=== PATIENT | male | born 1970 | race African-American/Black ===

== ENCOUNTER 2024-01-27 09:32 | Emergency (ER) | payer OTHER ==
--- NOTE | 2024-01-27 09:51 | ED ---
General Adult HPI - General Stated complaint: med refill Time Seen by Provider: 01/27/24 09:46 Source: patient, RN notes reviewed Mode of arrival: ambulatory Limitations: no limitations - History of Present Illness Initial comments: 54-year-old male presents emergency department with chief complaint of needing medication refill. Patient states he takes Prozac 30 mg daily. Patient states that he takes a 10 mg at 20 mg tablet he states he needs a new PCP and is out of his medication. He offers no other complaints. - Related Data Previous Rx's Medication Instructions Recorded DULoxetine HCL [Cymbalta] 60 mg PO DAILY #30 capsule. 05/27/16 QUEtiapine [SEROquel] 300 mg PO HS #90 tab 05/27/16 FLUoxetine HCL [PROzac] 10 mg PO DAILY #30 capsule 01/27/24 FLUoxetine HCL [PROzac] 20 mg PO DAILY #30 cap 01/27/24 Allergies Allergy/AdvReac Type Severity Reaction Status Date / Time aspirin Allergy Unknown Verified 01/27/24 09:57 Review of Systems ROS Statement: Those systems with pertinent positive or pertinent negative responses have been documented in the HPI. ROS Other: All systems not noted in ROS Statement are negative. Past Medical History Past Medical History: GERD/Reflux, Osteoarthritis (OA) Additional Past Medical History / Comment(s): 04-20-[address] [facility] overdose/suicidal- unable to obtain info from pt- called pt's mom.unable to o btain risk screen info (depression screen at time of this admit) arthritis both knees History of Any Multi-Drug Resistant Organisms: None Reported Past Surgical History: Appendectomy Past Anesthesia/Blood Transfusion Reactions: No Reported Reaction Past Psychological History: Bipolar, Depression Additional Psychological History / Comment(s): adhd Past Alcohol Use History: Rare Additional Past Alcohol Use History / Comment(s): Patient reports he has a rare to occasional beer, no history of alcoholism. Past Drug Use History: Cocaine Additional Drug Use History / Comment(s): Admits to cocaine use 2 days ago Delfin states he "smoked cocaine".. Denies IV drug abuse. admits to occassional use of cocaine smoked it - Past Family History Mother Family Medical History: COPD, Hypertension Additional Family Medical History / Comment(s): enlarged heart Father Family Medical History: Hypertension General Exam Limitations: no limitations General appearance: alert, in no apparent distress Head exam: Present: atraumatic, normocephalic, normal inspection Eye exam: Present: normal appearance, PERRL, EOMI. Absent: scleral icterus, conjunctival injection, periorbital swelling ENT exam: Present: normal exam, normal oropharynx, mucous membranes moist Neck exam: Present: normal inspection, full ROM. Absent: tenderness, meningismus, lymphadenopathy Respiratory exam: Present: normal lung sounds bilaterally. Absent: respiratory distress, wheezes, rales, rhonchi, stridor Cardiovascular Exam: Present: regular rate, normal rhythm, normal heart sounds. Absent: systolic murmur, diastolic murmur, rubs, gallop, clicks Course Vital Signs 01/27/24 09:55 Temperature 98 F Pulse Rate 64 Respiratory 18 Rate Blood Pressure 125/77 O2 Sat by Pulse 98 Oximetry Medical Decision Making - Medical Decision Making Was pt. sent in by a medical professional or institution (, PA, BUTTON CUTTER, urgent care, hospital, or prison...) When possible be specific @ -No Did you speak to anyone other than the patient for history (EMS, parent, family, police, friend...)? What history was obtained from this source @ -No Did you review nursing and triage notes (agree or disagree)? Why? @ -I reviewed and agree with nursing and triage notes Were old charts reviewed (outside hosp., previous admission, EMS record, old EKG, old radiological studies, urgent care reports/EKG's, prison records)? Report findings @ -No old charts were reviewed Differential Diagnosis (chest pain, altered mental status, abdominal pain women, abdominal pain men, vaginal bleeding, weakness, fever, dyspnea, syncope, headache, dizziness, GI bleed, back pain, seizure, CVA, palpatations, mental health, musculoskeletal)? @ -Medication refill, depression EKG interpreted by me (3pts min.). @ -None X-rays interpreted by me (1pt min.). @ -None done CT interpreted by me (1pt min.). @ -None done U/S interpreted by me (1pt. min.). @ -None done What testing was considered but not performed or refused? (CT, X-rays, U/S, labs)? Why? @ -None What meds were considered but not given or refused? Why? @ -None Did you discuss the management of the patient with other professionals (professionals i.e. , PA, BUTTON CUTTER, lab, RT, psych nurse, social services director, waitstaff, teacher, jail officer, top case assembler)? Give summary @ -No Was smoking cessation discussed for >3mins.? @ -No Was critical care preformed (if so, how long)? @ -No Were there social determinants of health that impacted care today? How? (Homelessness, low income, unemployed, alcoholism, drug addiction, transportation, low edu. Level, literacy, decrease access to med. care, nursing home, rehab)? @ -No Was there de-escalation of care discussed even if they declined (Discuss DNR or withdrawal of care, Hospice)? DNR status @ -No What co-morbidities impacted this encounter? (DM, HTN, Smoking, COPD, CAD, Cancer, CVA, ARF, Chemo, Hep., AIDS, mental health diagnosis, sleep apnea, morbid obesity)? @ -None Was patient admitted / discharged? Hospital course, mention meds given and route, prescriptions, significant lab abnormalities, going to OR and other pertinent info. @ -Discharge patient provided 30-day supply of his Prozac. Patient advised to find a new PCP. Undiagnosed new problem with uncertain prognosis? @ -No Drug Therapy requiring intensive monitoring for toxicity (Heparin, Nitro, Insulin, Cardizem)? @ -No Were any procedures done? @ -No Diagnosis/symptom? @ -Medication refill, depression Acute, or Chronic, or Acute on Chronic? @ -Acute Uncomplicated (without systemic symptoms) or Complicated (systemic symptoms)? @ -Uncomplicated Side effects of treatment? @ -No Exacerbation, Progression, or Severe Exacerbation? @ -No Poses a threat to life or bodily function? How? (Chest pain, [place], [place], pneumonia, PE, COPD, DKA, ARF, appy, cholecystitis, CVA, Diverticulitis, Homicidal, Suicidal, threat to staff... and all critical care pts) @ -No Disposition Clinical Impression: Depression, Medication refill Disposition: HOME SELF-CARE Condition: Stable Additional Instructions: Please return to the Emergency Department if symptoms worsen or any other concerns. Prescriptions: FLUoxetine HCL [PROzac] 10 mg PO DAILY #30 capsule FLUoxetine HCL [PROzac] 20 mg PO DAILY #30 cap Is patient prescribed a controlled substance at d/c from ED?: No Referrals: None,Stated [Primary Care Provider] - 1-2 days Time of Disposition: 09:51
[2024-01-27 09:57] VITALS: BP 125/77; PULSE 64; RESP 18; TEMP 98
== END 2024-01-27 10:01 | disposition home or self-care (01) ==
LOC: EC 09:32
DX: Z76.0 Encounter for issue of repeat prescription (principal); F32.A Depression, unspecified; Z88.6 Allergy status to analgesic agent; F14.90 Cocaine use, unspecified, uncomplicated
CPT/HCPCS: 99281

== ENCOUNTER 2024-02-03 09:32 | Emergency (ER) | payer OTHER ==
[2024-02-03 09:35] VITALS: RESP 16
--- NOTE | 2024-02-03 09:56 | ED ---
Recheck HPI - General Chief Complaint: Recheck/Abnormal Lab/Rx Stated Complaint: Rx refill Time Seen by Provider: 02/03/24 09:44 Source: patient, RN notes reviewed Mode of arrival: ambulatory Limitations: no limitations - History of Present Illness Initial Comments: This is a 54-year-old male who presents to the emergency department for medication refills. Patient states that he needs a refill on his atorvastatin, 20 mg. He is struggling to find a primary care provider to take over his medical care and prescription management. He otherwise denies any complaints. MD Complaint: medication refill request - Related Data Previous Rx's Medication Instructions Recorded DULoxetine HCL [Cymbalta] 60 mg PO DAILY #30 capsule. 05/27/16 QUEtiapine [SEROquel] 300 mg PO HS #90 tab 05/27/16 FLUoxetine HCL [PROzac] 10 mg PO DAILY #30 capsule 01/27/24 FLUoxetine HCL [PROzac] 20 mg PO DAILY #30 cap 01/27/24 Atorvastatin [Lipitor] 20 mg PO DAILY #30 tablet 02/03/24 Allergies Allergy/AdvReac Type Severity Reaction Status Date / Time aspirin Allergy Unknown Verified 02/03/24 09:35 Review of Systems ROS Statement: Those systems with pertinent positive or pertinent negative responses have been documented in the HPI. ROS Other: All systems not noted in ROS Statement are negative. Past Medical History Past Medical History: GERD/Reflux, Osteoarthritis (OA) Additional Past Medical History / Comment(s): 04-20-15 admitted to [facility] overdose/suicidal- unable to obtain info from pt- called pt's mom.unable to obtain risk screen info (depression screen at time of this admit) arthritis both knees History of Any Multi-Drug Resistant Organisms: None Reported Past Surgical History: Appendectomy Past Anesthesia/Blood Transfusion Reactions: No Reported Reaction Past Psychological History: Bipolar, Depression Past Alcohol Use History: Rare Past Drug Use History: Cocaine - Past Family History Mother Family Medical History: COPD, Hypertension Additional Family Medical History / Comment(s): enlarged heart Father Family Medical History: Hypertension General Exam Limitations: no limitations General appearance: alert, in no apparent distress Head exam: Present: atraumatic, normocephalic, normal inspection Respiratory exam: Present: normal lung sounds bilaterally. Absent: respiratory distress, wheezes, rales, rhonchi, stridor Cardiovascular Exam: Present: regular rate, normal rhythm, normal heart sounds. Absent: systolic murmur, diastolic murmur, rubs, gallop, clicks Neurological exam: Present: alert, oriented X3, CN II-XII intact Psychiatric exam: Present: normal affect, normal mood Skin exam: Present: warm, dry, intact, normal color. Absent: rash Course Vital Signs 02/03/24 02/03/24 09:33 10:19 Temperature 98.2 F 98.1 F Pulse Rate 72 71 Respiratory 16 16 Rate Blood Pressure 137/83 135/89 O2 Sat by Pulse 97 98 Oximetry Medical Decision Making - Medical Decision Making This is a 54 year old male who presents to the emergency department for a medication refill. Was pt. sent in by a medical professional or institution? @ -No Did you speak to anyone other than the patient for history? @ -No Did you review nursing and triage notes? @ -Yes, and I agree, it is accurate with regards to the patient's symptoms. Were old charts reviewed? @ -No Differential Diagnosis? @ -Medication refill, blood work order, this is not meant to be an all- inclusive list. EKG interpreted by me (3pts min.)? @ -Not obtained X-rays interpreted by me (1pt min.)? @ -Not obtained CT interpreted by me (1pt min.)? @ -Not obtained U/S interpreted by me (1pt. min.)? @ -Not obtained What testing was considered but not performed? (CT, X-rays, U/S, labs)? Why? @ -None What meds were considered but not given? Why? @ -None Did you discuss the management of the patient with other professionals? @ -No Did you reconcile home meds? @ -No Was smoking cessation discussed for >3mins.? @ -No Was critical care preformed (if so, how long)? @ -No Were there social determinants of health that impacted care today? How? (Homelessness, low income, unemployed, alcoholism, drug addiction, transportation, low edu. Level, literacy, decrease access to med. care, skilled nursing, rehab)? @ -No Was there de-escalation of care discussed even if they declined? (Discuss DNR or withdrawal of care, Hospice)? @ -No What co-morbidities impacted this encounter? (DM, HTN, Smoking, COPD, CAD, Cancer, CVA, Hep., AIDS, mental health diagnosis, sleep apnea, morbid obesity)? @ -HLD Was patient admitted / discharged? @ -Discharged. Refill on atorvastatin, 20 mg provided. He was also given a list of local primary care providers to become established for ongoing medical management. Undiagnosed new problem with uncertain prognosis? @ -None Drug Therapy requiring intensive monitoring for toxicity (Heparin, Nitro, Insulin, Cardizem)? @ -None Were any procedures done? @ -None Diagnosis/symptom? @ -Medication refill Acute, or Chronic, or Acute on Chronic? @ -Acute Uncomplicated (without systemic symptoms) or Complicated (systemic symptoms)? @ -Uncomplicated Side effects of treatment? @ -None Exacerbation, Progression, or Severe Exacerbation] @ -Not applicable Poses a threat to life or bodily function? @ -No Return precautions reviewed in depth, the patient is instructed to return to the emergency department with any new, worsening, or concerning symptoms. Patient v erbalized understanding. This case was discussed in detail with the attending ED physician, Dr. Buchanan. Presentation, findings, and treatment plan discussed in detail as well. Disposition Clinical Impression: Medication refill Disposition: HOME SELF-CARE Additional Instructions: Return to the emergency department with any new, worsening, or concerning symptoms. Continue to take your medications daily. Review the list of local primary care providers provided to become established for ongoing medical care. Prescriptions: Atorvastatin [Lipitor] 20 mg PO DAILY #30 tablet Is patient prescribed a controlled substance at d/c from ED?: No Referrals: None,Stated [Primary Care Provider] - 1-2 days Forms: Area PCPs Time of Disposition: 10:11
[2024-02-03 10:22] VITALS: BP 135/89; PULSE 71; TEMP 98.1
== END 2024-02-03 10:22 | disposition home or self-care (01) ==
LOC: EC 09:32
DX: Z76.0 Encounter for issue of repeat prescription (principal); Z88.6 Allergy status to analgesic agent; E78.5 Hyperlipidemia, unspecified; Z79.899 Other long term (current) drug therapy
CPT/HCPCS: 99283

== ENCOUNTER 2024-11-01 08:22 | Inpatient (IN) | payer MEDICAID, OTHER ==
--- NOTE | 2024-11-01 09:16 | ED ---
General Adult HPI - General Chief complaint: Psychiatric Symptoms Stated complaint: mental health Time Seen by Provider: 11/01/24 08:35 Source: patient, RN notes reviewed, old records reviewed Mode of arrival: ambulatory Limitations: no limitations - History of Present Illness Initial comments: This is a 54-year-old male who presents to the emergency department complaining that he is hearing voices that are telling him to kill himself. Patient states has been thinking about taking a knife and cut in his throat. Patient states he has not attempted any suicidal actions. Patient denies any drug use patient denies alcohol use patient denies taking any pills today. Patient denies any physical complaints today. - Related Data Home Medications Medication Instructions Recorded Confirmed FLUoxetine HCL [PROzac] 30 mg PO DAILY 11/01/24 11/01/24 OLANZapine [ZyPREXA] 10 mg PO HS 11/01/24 11/01/24 Allergies Allergy/AdvReac Type Severity Reaction Status Date / Time aspirin Allergy Unknown Verified 11/01/24 09:53 Review of Systems ROS Statement: Those systems with pertinent positive or pertinent negative responses have been documented in the HPI. ROS Other: All systems not noted in ROS Statement are negative. Past Medical History Past Medical History: GERD/Reflux, Osteoarthritis (OA) Additional Past Medical History / Comment(s): 04-20-15 admitted to [facility] overdose/suicidal- unable to obtain info from pt- called pt's mom.unable to obtain risk screen info (depression screen at time of this admit) arthritis both knees History of Any Multi-Drug Resistant Organisms: None Reported Past Surgical History: Appendectomy Past Anesthesia/Blood Transfusion Reactions: No Reported Reaction Past Psychological History: Bipolar, Depression Smoking Status: Never smoker Past Alcohol Use History: Rare Past Drug Use History: Cocaine - Past Family History Mother Family Medical History: COPD, Hypertension Additional Family Medical History / Comment(s): enlarged heart Father Family Medical History: Hypertension General Exam - General Exam Comments Initial Comments: GENERAL: Patient is well-developed and well-nourished. Patient is nontoxic and well- hydrated and is in no acute distress. ENT: Neck is soft and supple. No significant lymphadenopathy is noted. Oropharynx is clear. Moist mucous membranes. Neck has full range of motion without colin citing any pain. EYES: The sclera were anicteric and conjunctiva were pink and moist. Extraocular movements were intact and pupils were equal round and reactive to light. Eyelids were unremarkable. PULMONARY: Unlabored respirations. Good breath sounds bilaterally. No audible rales rhonchi or wheezing was noted. CARDIOVASCULAR: There is a regular rate and rhythm without any murmurs gallops or rubs. ABDOMEN: Soft and nontender with normal bowel sounds. No palpable organomegaly was noted. There is no palpable pulsatile mass. SKIN: Skin is clear with no lesions or rashes and otherwise unremarkable. NEUROLOGIC: Patient is alert and oriented x3. Cranial nerves II through XII are grossly intact. Motor and sensory are also intact. Normal speech, volume and content. Symmetrical smile. MUSCULOSKELETAL: Normal extremities with adequate strength and full range of motion. No lower extremity swelling or edema. No calf tenderness. LYMPHATICS: No significant lymphadenopathy is noted PSYCHIATRIC: Patient states he is suicidal. Patient states he cannot take a knife and cut his throat. Limitations: no limitations Course Vital Signs 11/01/24 08:33 Temperature 98.5 F Pulse Rate 88 Respiratory 18 Rate Blood Pressure 163/101 O2 Sat by Pulse 96 Oximetry Medical Decision Making - Medical Decision Making Was pt. sent in by a medical professional or institution (, PA, HIGH SCHOOL PRINCIPAL, urgent care, hospital, or [facility]...) When possible be specific @ -No Did you speak to anyone other than the patient for history (EMS, parent, family, police, friend...)? What history was obtained from this source @ -No Did you review nursing and triage notes (agree or disagree)? Why? @ -I reviewed and agree with nursing and triage notes Were old charts reviewed (outside hosp., previous admission, EMS record, old EKG, old radiological studies, urgent care reports/EKG's, [facility] records)? Report findings @ -No old charts were reviewed Differential Diagnosis? @ -Differential Mental Health Depression, anxiety, bipolar, psychosis, schizophrenia, borderline personality, situational depression, adjustment disorder, behavioral disorder, brain tumor, malingering, substance abuse, encephalopathy, medication reaction, dementia, hypothyroidism, degenerative neurologic disorder, lupus.... This is not meant to be all-inclusive list EKG interpreted by me (3pts min.). @ -As above X-rays interpreted by me (1pt min.). @ -None done CT interpreted by me (1pt min.). @ -None done U/S interpreted by me (1pt. min.). @ -None done What testing was considered but not performed or refused? (CT, X-rays, U/S, labs)? Why? @ -None What meds were considered but not given or refused? Why? @ -None Did you discuss the management of the patient with other professionals (professionals i.e. Dr., PA, HIGH SCHOOL PRINCIPAL, lab, RT, psych nurse, social service liaison, boner meat, teacher, correction officer supervisor, case resolution specialist)? Give summary @ -I spoke with EPS and they spoke with the psychiatrist and they agreed that the patient need to be admitted I admitted the patient Was smoking cessation discussed for >3mins.? @ -No Was critical care preformed (if so, how long)? @ -No Were there social determinants of health that impacted care today? How? (Homelessness, low income, unemployed, alcoholism, drug addiction, transportation, low edu. Level, literacy, decrease access to med. care, skilled nursing, rehab)? @ -No Was there de-escalation of care discussed even if they declined (Discuss DNR or withdrawal of care, Hospice)? DNR status @ -No What co-morbidities impacted this encounter? (DM, HTN, Smoking, COPD, CAD, Cancer, CVA, ARF, Chemo, Hep., AIDS, mental health diagnosis, sleep apnea, morbid obesity)? @ -None Was patient admitted / discharged? Hospital course, mention meds given and route, prescriptions, significant lab abnormalities, going to OR and other pertinent info. @ -Patient to continue to hear voices throughout his ED stay and states that he was being told to kill himself Undiagnosed new problem with uncertain prognosis? @ -No Drug Therapy requiring intensive monitoring for toxicity (Heparin, Nitro, Insulin, Cardizem)? @ -No Were any procedures done? @ -No Diagnosis/symptom? @ -Acute psychosis Acute, or Chronic, or Acute on Chronic? @ -Acute Uncomplicated (without systemic symptoms) or Complicated (systemic symptoms)? @ -Complicated Side effects of treatment? @ -No Exacerbation, Progression, or Severe Exacerbation? @ -No Poses a threat to life or bodily function? How? (Chest pain, [place], [place], pneumonia, PE, COPD, DKA, ARF, appy, cholecystitis, CVA, Diverticulitis, Homicidal, Suicidal, threat to staff... and all critical care pts) @ -Yes this could lead to suicide Disposition Clinical Impression: Acute psychosis Disposition: ADMITTED IP TO THIS HOSP Referrals: Sherin Amor MD [Primary Care Provider] - 1-2 days Time of Disposition: 13:50
[2024-11-01] MEDS ORDERED: ACETAMINOPHEN TAB 325 MG TAB PO PRN (17:25)
[2024-11-01] MEDS ORDERED: LORazepam 2 MG/ML INJ IM PRN (17:25)
[2024-11-01] MEDS ORDERED: IBUPROFEN 600 MG TAB PO PRN (17:25)
[2024-11-01] MEDS ORDERED: LORazepam 1 MG TAB PO PRN (17:25)
[2024-11-01] MEDS: OLANZapine 10 MG TAB PO SCH (20:06)
[2024-11-02] MEDS: FLUoxetine HCL 10 MG CAP PO SCH (08:29)
[2024-11-02] MEDS: NICOTINE 14MG/24HR PATCH TRANSDERM SCH (08:29)
[2024-11-02] MEDS: MAG HYDROX/AL HYDROX/SIMETH 30 ML CUP PO PRN (09:12)
[2024-11-02] MEDS ORDERED: MAG HYDROX/AL HYDROX/SIMETH 355 ML BOTTLE PO PRN (09:23)
[2024-11-02 10:28] LABS: Basophils % (A) 0 %; Eosinophils # (A) 0.1 k/uL (0-0.7); Eosinophils % (A) 1 %; HCT 45.4 % (39.0-53.0); HGB 14.9 gm/dL (13.0-17.5); Lymphocytes # (A) 1.5 k/uL (1.0-4.8); Lymphocytes % (A) 30 %; MCH 30.6 pg (25.0-35.0); MCHC 32.8 g/dL (31.0-37.0); MCV 93.4 fL (80.0-100.0); Monocytes # (A) 0.4 k/uL (0-1.0); Monocytes % (A) 7 %; Neutrophils % (A) 60 %; Platelet Count 217 k/uL (150-450); RBC 4.86 m/uL (4.30-5.90)
[2024-11-02 10:38] LABS: ALT 27 U/L (4-49); AST 27 U/L (17-59); African American GFR (CKD) 80 (>60 ml/min/1.73 sqM); Albumin 4.2 g/dL (3.5-5.0); Alkaline Phosphatase 59 U/L (38-126); Anion Gap 8 mmol/L; Bilirubin, Delta 0.2 mg/dL (0.0-0.2); Bilirubin,Unconjugated 0.4 mg/dL (0.0-1.1); Blood Urea Nitrogen 12 mg/dL (9-20); Calcium 9.5 mg/dL (8.4-10.2); Carbon Dioxide 26 mmol/L (22-30); Chloride 102 mmol/L (98-107); Glucose 189 mg/dL (74-99); Non-African American GFR(CKD) 69 (>60 ml/min/1.73 sqM); Potassium 4.4 mmol/L (3.5-5.1); Sodium 136 mmol/L (137-145); Total Bilirubin 0.6 mg/dL (0.2-1.3); Total Protein 7.4 g/dL (6.3-8.2)
[2024-11-02] MEDS ORDERED: CALCIUM CARBONATE 500 MG CHEWABLE PO PRN (12:38)
[2024-11-02] MEDS: cloNIDine HCL 0.1 MG TAB PO STA (12:44)
[2024-11-02] MEDS: PANTOPRAZOLE 40 MG TABLET PO SCH (12:44)
[2024-11-02] MEDS ORDERED: cloNIDine HCL 0.1 MG TAB PO PRN (13:34)
--- NOTE | 2024-11-02 14:55 | P.HP ---
Psychiatric H&P - . H&P Date: 11/02/24 History & Physical: Allergies Allergy/AdvReac Type Severity Reaction Status Date / Time aspirin Allergy Unknown Verified 11/01/24 09:53 Vital Signs Temp 96.8 F L 11/02/24 08:28 Pulse 92 11/02/24 08:28 Resp 16 11/01/24 20:05 BP 142/94 11/02/24 09:13 Pulse Ox 95 11/02/24 08:28 FiO2 Intake & Output 11/01/24 11/02/24 11/02/24 18:59 06:59 18:59 Weight 108.2 kg 108.2 kg Laboratory Last Values WBC 5.0 k/uL (3.8-10.6) 11/02/24 09:38 RBC 4.86 m/uL (4.30-5.90) 11/02/24 09:38 Hgb 14.9 gm/dL (13.0-17.5) 11/02/24 09:38 Hct 45.4 % (39.0-53.0) 11/02/24 09:38 MCV 93.4 fL (80.0-100.0) 11/02/24 09:38 MCH 30.6 pg (25.0-35.0) 11/02/24 09:38 MCHC 32.8 g/dL (31.0-37.0) 11/02/24 09:38 RDW 13.0 % (11.5-15.5) 11/02/24 09:38 Plt Count 217 k/uL (150-450) 11/02/24 09:38 MPV 8.0 11/02/24 09:38 Neutrophils % 60 % 11/02/24 09:38 Lymphocytes % 30 % 11/02/24 09:38 Monocytes % 7 % 11/02/24 09:38 Eosinophils % 1 % 11/02/24 09:38 Basophils % 0 % 11/02/24 09:38 Neutrophils # 3.0 k/uL (1.3-7.7) 11/02/24 09:38 Lymphocytes # 1.5 k/uL (1.0-4.8) 11/02/24 09:38 Monocytes # 0.4 k/uL (0-1.0) 11/02/24 09:38 Eosinophils # 0.1 k/uL (0-0.7) 11/02/24 09:38 Basophils # 0.0 k/uL (0-0.2) 11/02/24 09:38 Sodium 136 mmol/L (137-145) L 11/02/24 09:38 Potassium 4.4 mmol/L (3.5-5.1) 11/02/24 09:38 Chloride 102 mmol/L (98-107) 11/02/24 09:38 Carbon Dioxide 26 mmol/L (22-30) 11/02/24 09:38 Anion Gap 8 mmol/L 11/02/24 09:38 BUN 12 mg/dL (9-20) 11/02/24 09:38 Creatinine 1.19 mg/dL (0.66-1.25) 11/02/24 09:38 Est GFR (CKD-EPI)AfAm 80 (>60 ml/min/1.73 sqM) 11/02/24 09:38 Est GFR (CKD-EPI)NonAf 69 (>60 ml/min/1.73 sqM) 11/02/24 09:38 Glucose 189 mg/dL (74-99) H 11/02/24 09:38 Calcium 9.5 mg/dL (8.4-10.2) 11/02/24 09:38 Total Bilirubin 0.6 mg/dL (0.2-1.3) 11/02/24 09:38 Conjugated Bilirubin 0.0 mg/dL (0.0-0.3) 11/02/24 09:38 Unconjugated Bilirubin 0.4 mg/dL (0.0-1.1) 11/02/24 09:38 Delta Bilirubin 0.2 mg/dL (0.0-0.2) 11/02/24 09:38 AST 27 U/L (17-59) 11/02/24 09:38 ALT 27 U/L (4-49) 11/02/24 09:38 Alkaline Phosphatase 59 U/L (38-126) 11/02/24 09:38 Total Protein 7.4 g/dL (6.3-8.2) 11/02/24 09:38 Albumin 4.2 g/dL (3.5-5.0) 11/02/24 09:38 TSH 1.800 mIU/L (0.465-4.680) 11/02/24 09:38 SARS-CoV-2 (PCR) Not Detected (Not Detectd) 11/01/24 13:54 11/02/24 14:46 IDENTIFYING DATA: Patient is a 54-year-old male, homeless and unemployed CHIEF COMPLAINT: Psychosis HPI: Patient presented to the hospital with suicidal ideations and auditory hallucinations. Per EPS, "Patient brought self to ER related to auditory hallucinations and suicidal ideations. Patient assessed in ER13 from [id number]. Patient states that he has been hearing voices telling him to kill himself. Patient states that his plan would be to overdose on his medications. Patient states that his depression has been worsening over the last couple of months. States the auditory hallucinations have been becoming more severe over the last week. Patient verbalizes visual hallucinations of "people coming at me". Patient states that he often has suicidal thoughts that are difficult to control and is unable to get rid of the thoughts when he has them. Patient verbalizes feeling paranoid often, and states that his paranoia is debilitating especially in the detention." Patient seen and evaluated on the unit and was agreeable with speaking to junior underwriter in office. He states losing his mother 5 weeks ago with resultant worsening in symptoms. He states since then he has been having auditory hallucinations that are command in nature, telling him to kill himself. He describes these voices as multiple, ongoing. He states he was put on Zyprexa a few months back however he has not noticed any improvement in the voices. He also reports suicidal ideations, no plan but with intent. He reports sleep difficulties, feeling hopeless, poor concentration, anhedonia, denying any appetite or energy changes. Patient reports generalized anxiety in addition to racing thoughts and feeling on edge. Patient denies any homicidal ideations intent or plan. At this time patient denies any auditory or visual hallucinations. Patient denies any flight of ideas racing thoughts and increased in goal directed behavior. Patient admits to using no substances however did admit to using cocaine "many years ago". PAST PSYCHIATRIC HISTORY: Patient has a history of adjustment disorder, cocaine use disorder. Patient is currently prescribed Prozac 30 mg daily, Zyprexa 10 mg at bedtime. Patient reports 2 inpatient hospitalizations most recent being at another facility back in 2018. Patient has tried several psychotropic medicat ions including Seroquel, Cymbalta, Trileptal, Risperdal, Lamictal, Effexor, Celexa. Patient sees Lor at [facility]. Patient reports 2 suicide attempts, last being 2015. PMH: as per ER note ALLERGIES: as per EMR SUBSTANCE USE HISTORY: As per HPI FAMILY PSYCHIATRIC/SUBSTANCE USE HISTORY: Patient states his mother and sister both suffer from depression and attempted suicide and that his sister also ab used crack cocaine SOCIAL HISTORY: Patient has been homeless for the past year, living in a detention. He completed high school with special education, is single and has no children. He is unemployed however states he is applying for disability. MENTAL STATUS EXAM: General Appearance: Patient appears to be stated age is alert, directable, and attempts to cooperate. Patient appears to have fair hygiene and grooming. Behavior: Patient is seated without any agitated behavior. Speech: Patient's speech is fluent and nonpressured. Mood/Affect: Patient reports their mood is depressed, affect is congruent and constricted. Suicidality/Homicidality: Patient denies having any homicidal ideation intent or plan. Patient reports suicidal ideations with intent, no plan Perceptions: Patient denies any visual hallucinations however he reports auditory hallucinations, command in nature Though content/process: There is no evidence of any delusional thought content and thought process is linear. Memory and concentration: AOX3, grossly intact for the purposes of this session. Can spell "WORLD" backwards Judgment and insight: Poor STRENGTHS/WEAKNESSES: strength is that patient is resilient and willingness to seek help. Weakness is that patient has poor judgment and is impulsive INTELLECT: Below average IMPRESSIONS: Major depressive disorder, recurrent, severe with psychotic features Rule out substance-induced psychotic disorder Generalized anxiety disorder History of cocaine use disorder History of learning disability PLAN: -Patient is admitted under voluntary status to [facility] for stabilization of psychiatric symptoms and safety. Patient has signed adult voluntary form and medication consent and is placed in patient's chart. -Medications : Discontinue Zyprexa and start Seroquel 100 mg at bedtime for psychosis, continue Prozac 30 mg daily for depression/anxiety, start trazodone 50 mg at bedtime for insomnia -Ativan PRN for agitation/aggression -Patient was informed of the risks, benefits and side effects of the medication and patient verbally consented to taking the medications. Patient signed med consent form and was placed in chart. -Internal Medicine consult to perform medical evaluation and physical. -NRT -not needed as patient does not smoke -SW on board for discharge planning. Encourage patient to participate in groups to work on coping skills.
[2024-11-02 14:58] LABS: Appearance,Urine Clear (Clear); Bilirubin,Urine Negative (Negative); Blood,Urine Negative (Negative); Color,Urine Yellow; Glucose,Urine (UA) Negative (Negative); Ketones,Urine Negative (Negative); Leukocyte Esterase,Urine Negative (Negative); Nitrite,Urine Negative (Negative); Protein,Urine Negative (Negative); Specific Gravity,Urine 1.026 (1.001-1.035)
[2024-11-02 15:39] LABS: Amphetamine Screen,Urine Not Detected (NotDetected); Barbiturate Screen,Urine Not Detected (NotDetected); Benzodiazepines Screen,Urine Detected (NotDetected); Cocaine Screen,Urine Not Detected (NotDetected); Methadone Screen, Urine Not Detected (NotDetected); Opiate Screen,Urine Not Detected (NotDetected); Oxycodone Screen, Urine Not Detected (NotDetected); Phencyclidine Screen,Urine Not Detected (NotDetected); Tricyclic Antidepressant,Urine Not Detected (NotDetected); Urn Cannabinoid Scrn Not Detected (NotDetected)
[2024-11-02 19:07] LABS: Chol/HDL Ratio 3.51 Ratio; LDL Cholesterol,Calculated 119.6 mg/dL (0.0-131.0)
[2024-11-02] MEDS: traZODone HCL 50 MG TAB PO SCH (20:42)
[2024-11-02] MEDS: QUEtiapine 100 MG TAB PO SCH (20:42)
--- NOTE | 2024-11-03 06:22 | P.MDCNMH ---
History of Present Illness H&P Date: 11/02/24 This is a 54-year-old male who presented to the emergency department with auditory hallucinations reporting that he is hearing voices to harm himself and wants to take a knife and cut his throat. Patient with significant past medical history of bipolar, depression, ADHD, GERD, osteoarthritis and previous history of cocaine use years ago, rarely drinks and denies any other significant drug use. Patient was voluntarily admitted to [facility] for further psychiatric evaluation. Recommend basic labs including CBC, CMP, thyroid for further evaluation. Patient had COVID testing in the ER which was negative. REVIEW OF SYSTEMS: CONSTITUTIONAL: No fever, no malaise, no fatigue. HEENT: No recent visual problems or hearing problems. Denied any sore throat. CARDIOVASCULAR: No chest pain, orthopnea, PND, no palpitations, no syncope. PULMONARY: No shortness of breath, no cough, no hemoptysis. GASTROINTESTINAL: No diarrhea, no nausea, no vomiting, no abdominal pain. NEUROLOGICAL: No headaches, no weakness, no numbness. HEMATOLOGICAL: Denies any bleeding or petechiae. GENITOURINARY: Denies any burning micturition, frequency, or urgency. MUSCULOSKELETAL/RHEUMATOLOGICAL: Denies any joint pain, swelling, or any muscle pain. ENDOCRINE: Denies any polyuria or polydipsia. The rest of the 14-point review of systems is negative. PHYSICAL EXAMINATION: GENERAL: The patient is alert and oriented x3, not in any acute distress. Mildly anxious on exam. Well developed, well nourished. HEENT: Pupils are round and equally reacting to light. EOMI. No scleral icterus. No conjunctival pallor. Normocephalic, atraumatic. No pharyngeal erythema. No thyromegaly. CARDIOVASCULAR: S1 and S2 present. No murmurs, rubs, or gallops. PULMONARY: Chest is clear to auscultation, no wheezing or crackles. ABDOMEN: Soft, nontender, nondistended, normoactive bowel sounds. No palpable organomegaly. MUSCULOSKELETAL: No joint swelling or deformity. EXTREMITIES: No cyanosis, clubbing, or pedal edema. NEUROLOGICAL: Gross neurological examination did not reveal any focal deficits. SKIN: No rashes. Assessment: Auditory hallucinations with homicidal ideation, patient reports he is hearing voices that tell him to kill himself History of ADD/ADHD History of bipolar/depression GERD Osteoarthritis Previous history of polysubstance abuse including cocaine GI prophylaxis Obesity with a BMI 35.2 Full code Plan: Patient was voluntarily admitted to [facility] for further psychiatric evaluation. Patient reports he follows with Dr. Juan Alberto Pandya in the outpatient setting and home medications have been resumed Recommend basic labs including CBC, CMP, thyroid for further evaluation, also hemoglobin A1c Patient's blood pressures are elevated and patient denies any history of hypertension will obtain a EKG, start clonidine twice daily Instructed the patient and encouraged the patient to be compliant with medications and group therapy sessions and psychiatric evaluation. Patient reports he already went to 1 group therapy session Patient reports he also follows with [facility] outpatient and has been instructed to follow-up on discharge along with Dr. Juan Alberto Pandya. Thank you kindly for this consultation. Please do not hesitate to contact us with questions or concerns The impression and plan of care has been dictated by Bailee Mcknight, Nurse Practitioner as directed. Dr. Ana MD I have performed a history and examination and MDM of this patient, discussed the same with the dictator, and agree with the dictator's assessment and plan as written ,documented as a scribe. Based on total visit time, I have performed more than 50% of the visit. Past Medical History Past Medical History: GERD/Reflux, Osteoarthritis (OA) Additional Past Medical History / Comment(s): 04-20-15 admitted to [facility] overdose/ suicidal- unable to obtain info from pt- called pt's mom.unable to obtain risk screen info (depression screen at time of this admit) arthritis both knees History of Any Multi-Drug Resistant Organisms: None Reported Past Surgical History: Appendectomy Past Anesthesia/Blood Transfusion Reactions: No Reported Reaction Past Psychological History: Bipolar, Depression Smoking Status: Never smoker Past Alcohol Use History: Rare Past Drug Use History: Cocaine - Past Family History Mother Family Medical History: COPD, Hypertension Additional Family Medical History / Comment(s): enlarged heart Father Family Medical History: Hypertension Medications and Allergies Home Medications Medication Instructions Recorded Confirmed Type FLUoxetine HCL [PROzac] 30 mg PO DAILY 11/01/24 11/01/24 History OLANZapine [ZyPREXA] 10 mg PO HS 11/01/24 11/01/24 History Allergies Allergy/AdvReac Type Severity Reaction Status Date / Time aspirin Allergy Unknown Verified 11/01/24 09:53 Physical Exam Vitals: Vital Signs Temp Pulse Pulse Resp BP BP BP 11/02/24 09:13 142/94 11/02/24 08:28 96.8 F L 92 172/117 11/01/24 20:05 97.7 F 85 16 145/96 11/01/24 19:02 98.3 F 80 16 200/112 11/01/24 18:47 81 16 176/91 11/01/24 14:00 75 16 170/95 Pulse Ox 11/02/24 09:13 11/02/24 08:28 95 11/01/24 20:05 96 11/01/24 19:02 96 11/01/24 18:47 99 11/01/24 14:00 98 Intake and Output 11/01/24 11/02/24 11/02/24 22:59 06:59 14:59 Other: Weight 108.2 kg Cranial Nerve Examination - Cranial Nerves Cranial Nerve I- Olfactory: Intact Cranial Nerve II- Optic: Intact Cranial Nerve III- Oculomotor: Intact Cranial Nerve IV- Trochlear: Intact Cranial Nerve V- Trigeminal: Intact Cranial Nerve - Abducens: Intact Cranial Nerve VII- Facial: Intact Cranial Nerve VIII- Auditory: Intact Cranial Nerve IX- Glossopharyngeal: Intact Cranial Nerve X- Vagus: Intact Cranial Nerve XI- Accessory: Intact Cranial Nerve XII- Hypoglossal: Intact Results CBC & Chem 7: 11/02/24 09:38 11/02/24 09:38
[2024-11-03] MEDS: cloNIDine HCL 0.1 MG TAB PO SCH (08:21)
[2024-11-03] MEDS: FLUoxetine HCL 20 MG CAP PO SCH (08:21)
--- NOTE | 2024-11-03 13:39 | P.PN ---
Progress Note - Text Progress Note Date: 11/03/24 Interval History: Patient was seen wandering the hallways and was directable and agreeable to ivonne garzon with keno writer / runner in the office. Patient notably has been tending to his ADLs and states he has gone to a few groups yesterday. He spoke to his friend who will visit him today during visitations. He reports poor sleep overnight described as difficulty staying asleep. He continues to report auditory hallucinations that are command in nature however did reports lessening in intensity in his suicidal ideations however still there, denying any plan today. Patient's blood pressure has improved with the added medications. He reports briefly using benzodiazepine that was given to him by a friend but denied any consistent use. At this time patient denies any homicidal ideations, intent or plan. Patient denies any visual hallucinations and denies any paranoia or delusions. Patient denies any side effects from the medications and has been compliant with meds. Mental Status Exam: General Appearance: Patient appears to be stated age is alert, directable, and cooperative. He has fair grooming and hygiene Behavior: Patient is calmly seated without any agitated behavior. Speech: Patient's speech is fluent and nonpressured. Mood/Affect: Mood is improving mildly, affect is congruent and blunted but reactive. Suicidality/Homicidality: Patient denies having any homicidal ideation intent or plan. He reports suicidal ideations, lessening in intensity Perceptions: Patient denies any visual hallucinations however reports auditory hallucinations that are command in nature Though content/process: There is no evidence of any delusional thought content and thought process is linear and logical. Memory and concentration: AOX3, grossly intact for the purposes of this session Judgment and insight: Improving mildly Assessment Major depressive disorder, recurrent, severe with psychotic features Generalized anxiety disorder History of cocaine use disorder History of learning disability Plan: -Patient continues to meet criteria for inpatient psychiatric admission for symptom stabilization and safety. Patient has signed adult voluntary form and medication consent and was placed in patient's chart. -Medications: Increase Seroquel to 200 mg at bedtime for psychosis, increase Prozac to 40 mg daily today for depression/anxiety, increase trazodone to 100 mg at bedtime for insomnia -When necessary Ativan for agitation/aggression. -Labs: Reviewed, UDS positive for benzodiazepines -SW on board for discharge planning. Encouraged the patient to participate in milieu.
[2024-11-03] MEDS: ATORVASTATIN 20 MG TAB PO SCH (20:01)
[2024-11-03] MEDS: QUEtiapine 200 MG TAB PO SCH (20:01)
[2024-11-03] MEDS: traZODone HCL 100 MG TAB PO SCH (20:01)
--- NOTE | 2024-11-04 11:55 | P.PN ---
Progress Note - Text Progress Note Date: 11/04/24 Interval History: Patient was seen wandering the hallways and was directable and agreeable to sp ryann with television script writer in the office. He states the voices have improved however they are still there. He reports lessening in intensity in his suicidal ideations, reporting depression still high at an 8 out of 10 in severity. He reports sleeping well and eating well. He does report dry mouth but is able to drink more water to help. At this time patient denies any homicidal ideations, intent or plan. Patient denies any visual hallucinations and denies any paranoia or delusions. Patient has been compliant with meds. Mental Status Exam: General Appearance: Patient appears to be stated age is alert, directable, and cooperative. He has fair grooming and hygiene Behavior: Patient is calmly seated without any agitated behavior. Speech: Patient's speech is fluent and nonpressured. Mood/Affect: Mood is improving mildly, affect is congruent and blunted but reactive. Suicidality/Homicidality: Patient denies having any homicidal ideation intent or plan. He reports suicidal ideations, lessening in intensity Perceptions: Patient denies any visual hallucinations and he does report auditory hallucinations however lessening in intensity Though content/process: There is no evidence of any delusional thought content and thought process is linear and logical. Memory and concentration: AOX3, grossly intact for the purposes of this session Judgment and insight: Improving mildly Assessment Major depressive disorder, recurrent, severe with psychotic features Generalized anxiety disorder History of cocaine use disorder History of learning disability Plan: -Patient continues to meet criteria for inpatient psychiatric admission for symptom stabilization and safety. Patient has signed adult voluntary form and medication consent and was placed in patient's chart. -Medications: Continue Seroquel 200 mg at bedtime for psychosis, Prozac 40 mg daily for depression/anxiety, trazodone 100 mg at bedtime for insomnia -When necessary Ativan for agitation/aggression. -Labs: Reviewed -SW on board for discharge planning. Encouraged the patient to participate in milieu. Anticipate discharge early next week to detention
[2024-11-04] MEDS: MAGNESIUM HYDROXIDE 2,400 MG/30 ML CUP PO PRN (17:03)
[2024-11-05] MEDS: FLUoxetine HCL 20 MG CAP PO SCH (08:20)
--- NOTE | 2024-11-05 12:17 | P.PN ---
Progress Note - Text Progress Note Date: 11/05/24 Interval History: Patient was seen in his room and was directable and agreeable to speak with wr iter in the room. He reports feeling better, sleeping well and improvement in his dry mouth. He has been attending groups, tending to his ADLs. He reports being nervous about his upcoming discharge and was encouraged to reach out to friends or family as he is homeless as the plan is to return to [facility]. At this time patient denies any suicidal or homicidal ideations, intent or plan. Patient denies any auditory, visual hallucinations and denies any paranoia or delusions. Patient denies any side effects from the medications and has been compliant with meds. Mental Status Exam: General Appearance: Patient appears to be stated age is alert, directable, and cooperative. He has fair grooming and hygiene Behavior: Patient is calmly seated without any agitated behavior. Speech: Patient's speech is fluent and nonpressured. Mood/Affect: Mood is improving mildly, affect is congruent and reactive. Suicidality/Homicidality: Patient denies having any suicidal or homicidal ideation intent or plan. Perceptions: Patient denies any visual hallucinations and denies any auditory hallucinations Though content/process: There is no evidence of any delusional thought content and thought process is linear and logical. Memory and concentration: AOX3, grossly intact for the purposes of this session Judgment and insight: Improving mildly Assessment Major depressive disorder, recurrent, severe with psychotic features Generalized anxiety disorder History of cocaine use disorder History of learning disability Plan: -Patient continues to meet criteria for inpatient psychiatric admission for symptom stabilization and safety. Patient has signed adult voluntary form and medication consent and was placed in patient's chart. -Medications: Continue Seroquel 20 mg at bedtime for psychosis, trazodone 100 mg at bedtime for insomnia, increase Prozac to 60 mg daily for depression/anxiety, -When necessary Ativan for agitation/aggression. -Labs: Reviewed -SW on board for discharge planning. Encouraged the patient to participate in milieu. Anticipate discharge to [facility] on Friday
--- NOTE | 2024-11-06 10:53 | P.PN ---
Progress Note - Text Progress Note Date: 11/06/24 Interval history: Patient was seen in his room and was directable and agreeable to speak with alexis fontenot. Continues to report feeling well, expressing no concerns today. He did report some lightheadedness while standing and was encouraged to hydrate and to sit at the edge of the bed before standing when attempting to get up. He states he is able to return to his friend's house upon discharge and that he feels safe returning there. He states his auditory hallucinations are at baseline, mild in severity. At this time patient denies any suicidal or homicidal ideations intent or plan. Denies any visual hallucinations. Patient has been compliant with meds. Mental status exam: General Appearance: Patient appears to be stated age is alert, directable, and cooperative. He has fair grooming and hygiene Behavior: No agitated behavior. Patient is calm and directable. Laying in bed Speech: Patient's speech is fluent and nonpressured. Mood/Affect: Mood is improving mildly, affect is congruent and bright, reactive Suicidality/Homicidality: Patient denies having any suicidal or homicidal ideation intent or plan. Perceptions: Patient denies any visual hallucinations. He reports baseline auditory hallucinations, mild in severity Though content/process: There is no evidence of any delusional thought content and thought process is linear and goal-directed. Memory and concentration: AOX3, grossly intact for the purposes of this session Judgment and insight: improving mildly Assessment/Plan: Continue with current diagnosis. Patient continues to meet criteria for inpatient psychiatric admission for symptom stabilization and safety. Patient will be maintained on current psychotropic medication regimen. Monitor for medication compliance and for any psychotropic medication side effects. Will continue to monitor ongoing response to treatment. Encouraged participation in milieu.
--- NOTE | 2024-11-07 10:35 | P.PN ---
Progress Note - Text Progress Note Date: 11/07/24 Interval history: Patient was seen in his room and was directable and agreeable to speak with alexis fontenot. He reports some sleep difficulties overnight however he has been thinking about his mother who recently . He states he has been seeing his mother intermittently and patient was educated on the grieving process at home visual hallucinations of loved ones is normal. Grief counseling was discussed with patient he was encouraged to consider therapy upon discharge. He will return to her friend's house upon discharge tomorrow. At this time patient denies any suicidal or homicidal ideations intent or plan. Denies any visual hallucinations. Auditory hallucinations are at baseline, no worsening. Patient denies any side effects from the medications and has been compliant with meds. Mental status exam: General Appearance: Patient appears to be stated age is alert, directable, and cooperative. He has fair grooming and hygiene Behavior: No agitated behavior. Patient is calm and directable Speech: Patient's speech is fluent and nonpressured. Mood/Affect: Mood is improving mildly, affect is congruent and blunted Suicidality/Homicidality: Patient denies having any suicidal or homicidal ideation intent or plan. Perceptions: Patient denies any visual hallucinations. He reports baseline auditory hallucinations, no worsening he did not appear internally preoccupied during encounter Though content/process: There is no evidence of any delusional thought content and thought process is linear and goal-directed. Memory and concentration: AOX3, grossly intact for the purposes of this session Judgment and insight: improving mildly Assessment/Plan: Continue with current diagnosis. Patient continues to meet criteria for inpatient psychiatric admission for symptom stabilization and safety. Patient will be maintained on current psychotropic medication regimen. Monitor for medication compliance and for any psychotropic medication side effects. Will continue to monitor ongoing response to treatment. Encouraged participation in milieu.
[2024-11-08 08:49] VITALS: BP 142/95; PULSE 89; RESP 16; TEMP 98.1
--- NOTE | 2024-11-08 12:51 | P.DS ---
Providers Date of admission: 11/01/24 17:19 Expected date of discharge: 11/08/24 Attending physician: Sammi Otoole MD Consults: 11/01/24 17:25 Consult Physician Routine Consulting Provider: Humza Morfin Consult Reason/Comments: History and Physical, New Admission Do you want consulting provider notified?: Yes Primary care physician: Sherin Amor - Discharge Diagnosis(es) (1) Major depressive disorder, recurrent, severe with psychotic features Current Visit: Yes Status: Acute Priority: High (2) Generalized anxiety disorder Current Visit: Yes Status: Acute Priority: Medium (3) Cocaine use disorder in remission Current Visit: No Status: Chronic Priority: Low (4) History of learning disability Current Visit: Yes Status: Chronic Priority: Low Hospital Course: Admission HPI: Admission note was completed by machine sign writer" Patient presented to the hospital with suicidal ideations and auditory hallucinations. Per EPS, "Patient brought self to ER related to auditory hallucinations and suicidal ideations. Patient assessed in ER13 from [id number]. Patient states that he has been hearing voices telling him to kill himself. Patient states that his plan would be to overdose on his medications. Patient states that his depression has been worsening over the last couple of months. States the auditory hallucinations have been becoming more severe over the last week. Patient verbalizes visual hallucinations of "people coming at me". Patient states that he often has suicidal thoughts that are difficult to control and is unable to get rid of the thoughts when he has them. Patient verbalizes feeling paranoid often, and states that his paranoia is debilitating especially in the residential." Patient seen and evaluated on the unit and was agreeable with speaking to machine sign writer in office. He states losing his mother 5 weeks ago with resultant worsening in symptoms. He states since then he has been having auditory hallucinations that are command in nature, telling him to kill himself. He describes these voices as multiple, ongoing. He states he was put on Zyprexa a few months back however he has not noticed any improvement in the voices. He also reports suicidal ideations, no plan but with intent. He reports sleep difficulties, feeling hopeless, poor concentration, anhedonia, denying any appetite or energy changes. Patient reports generalized anxiety in addition to racing thoughts and feeling on edge. Patient denies any homicidal ideations intent or plan. At this time patient denies any auditory or visual hallucinations. Patient denies any flight of ideas racing thoughts and increased in goal directed behavior. Patient admits to using no substances however did admit to using cocaine "many years ago"." Hospital course: Upon admission to the unit patient was directable and agreeable to commence treatment and signed adult voluntary form.. Patient got along well with other patients on the unit and followed unit protocol. Patient was compliant with the medications and denied any side effects throughout hospital course. Patient was started on Seroquel in place of Zyprexa and this was increased to 200 mg at bedtime for psychosis, trazodone increased to 100 mg at bedtime for insomnia, Prozac increased to 60 mg daily for depression/anxiety. Patient spoke of his stressors and engaged in therapy both group and individual. Patient was also seen by medical team for history and physical exam. He was started on clonidine 0.1 mg twice daily for hypertension. Throughout the course of the hospitalization patient gradually improved with regards to mood, anxiety, sleep and returned back to their baseline level of functioning. On the day of discharge patient denied any suicidal or homicidal ideations intent or plan denied any auditory or visual hallucinations. The patient denied any access to guns or weapons. Patient denied any paranoia and did not endorse any delusions. Patient does not have a significant history of substance abuse and was c ounseled on abstaining from all substances including alcohol and marijuana. Patient was also counseled on the medications and need for regular compliance and was encouraged to follow-up with their outpatient appointment for mental health and also for primary care. Patient to be discharged to friend's house and will follow-up with [facility]. Mental status exam: General Appearance: Patient appears to be stated age is alert, pleasant, and cooperative. Patient is in no acute distress and has fair hygiene and grooming Behavior: Patient is calmly seated without any agitated behavior. Speech: Patient's speech is fluent and nonpressured. Mood/Affect: Patient reports their mood is "good", affect is congruent and euthymic, reactive. Suicidality/Homicidality: Patient denies having any suicidal or homicidal ideation intent or plan. Perceptions: Patient denies any auditory or visual hallucinations. Though content/process: There is no evidence of any delusional thought content and thought process is linear and goal-directed. Memory and concentration: AOX3, grossly intact for the purposes of this session. Can spell "WORLD" backwards correctly. Judgment and insight: Good Impression: Major depressive disorder, recurrent, severe with psychotic features Generalized anxiety disorder Cocaine use disorder in remission History of learning disability Plan: -Continue with discharge today as patient has improved and stabilized psychiatrically and is not currently an imminent threat to themself and/or others. -Continue medications: Seroquel 200 mg at bedtime, trazodone 100 mg at bedtime, Prozac 60 mg daily -Patient was counseled on the need for medication compliance and appropriate follow-up at mental health and also primary care for medical issues. Patient verbalized understanding and agreed. -Social work to help coordinate patients discharge today. also to ensure safe home environment that guns/weapons are either removed from the home or locked away. Social work also to arrange for patients follow up appointments with [facility] for psychiatric care along with follow up with primary care provider. -Patient counseled on abstaining from recreational drugs and marijuana and alcohol. Was informed/educated on the adverse effects on their physical and mental health. Patient verbally agreed and understood. -Patient was instructed to return to the hospital or seek immediate medical care if their psychiatric or medical symptoms do worsen or reoccur. Abnormal Labs 11/02/24 11/02/24 09:38 14:50 Sodium 136 L Glucose 189 H Triglycerides 249.00 H Cholesterol 237.00 H VLDL Cholesterol, Calc 49.80 H HDL Cholesterol 67.60 H U Benzodiazepines Scrn Detected H Vital Signs Temp 98.1 F 11/08/24 07:47 Pulse 89 11/08/24 07:47 Resp 16 11/08/24 07:47 BP 142/95 11/08/24 07:47 Pulse Ox 94 L 11/08/24 07:47 FiO2 Intake & Output 11/07/24 11/08/24 11/08/24 18:59 06:59 18:59 Weight 108.8 kg Allergies Allergy/AdvReac Type Severity Reaction Status Date / Time aspirin Allergy Unknown Verified 11/01/24 09:53 Patient Condition at Discharge: Stable Plan - Discharge Summary New Discharge Prescriptions: New traZODone HCL [Desyrel] 100 mg PO HS 30 Days #30 tab Pantoprazole [Protonix] 40 mg PO DAILY 30 Days #30 tab QUEtiapine [SEROquel] 200 mg PO HS 30 Days #30 tab cloNIDine HCL [Catapres] 0.1 mg PO BID 30 Days #60 tab Atorvastatin [Lipitor] 20 mg PO HS 30 Days #30 tab FLUoxetine HCL [PROzac] 60 mg PO DAILY 30 Days #90 cap Discontinued OLANZapine [ZyPREXA] 10 mg PO HS FLUoxetine HCL [PROzac] 30 mg PO DAILY Discharge Medication List Atorvastatin [Lipitor] 20 mg PO HS 30 Days #30 tab 11/08/24 [Rx] FLUoxetine HCL [PROzac] 60 mg PO DAILY 30 Days #90 cap 11/08/24 [Rx] Pantoprazole [Protonix] 40 mg PO DAILY 30 Days #30 tab 11/08/24 [Rx] QUEtiapine [SEROquel] 200 mg PO HS 30 Days #30 tab 11/08/24 [Rx] cloNIDine HCL [Catapres] 0.1 mg PO BID 30 Days #60 tab 11/08/24 [Rx] traZODone HCL [Desyrel] 100 mg PO HS 30 Days #30 tab 11/08/24 [Rx] Follow up Appointment(s)/Referral(s): Sherin Amor MD [Primary Care Provider] - 1-2 days Patient Instructions/Handouts: Depression (DC), Brief Psychotic Disorder (DC) Activity/Diet/Wound Care/Special Instructions: [facility] Discharge Info Avoid the use of street drugs and alcohol. Take all medications as prescribed. When you are in need of refills on your medications, please contact your outpatient medical provider and/or outpatient psychiatrist. Please go to your scheduled outpatient appointments for aftercare treatment. If symptoms return or become worse, call the crisis line at or and/or visit the nearest emergency room for assistance. National Suicide and Crisis Lifeline - call or text 546
== END 2024-11-08 13:35 | disposition home or self-care (01) | DRG 750 ==
LOC: EC 08:22 → 3MHU 17:19
PROVIDERS: ADMIT Psychiatry & Neurology Psychiatry; ATTEND Psychiatry & Neurology Psychiatry
DX: F33.3 Major depressive disorder, recurrent, severe with psychotic symptoms (principal); R45.850 Homicidal ideations; Z59.01 Sheltered homelessness; F14.11 Cocaine abuse, in remission; I10 Essential (primary) hypertension; Z68.35 Body mass index [BMI] 35.0-35.9, adult; E66.9 Obesity, unspecified; F81.9 Developmental disorder of scholastic skills, unspecified; F41.1 Generalized anxiety disorder; R45.851 Suicidal ideations; G47.00 Insomnia, unspecified; K21.9 Gastro-esophageal reflux disease without esophagitis; M19.90 Unspecified osteoarthritis, unspecified site; F90.9 Attention-deficit hyperactivity disorder, unspecified type; R68.2 Dry mouth, unspecified; Z79.899 Other long term (current) drug therapy; Z56.0 Unemployment, unspecified; Z91.51 Personal history of suicidal behavior; Z81.8 Family history of other mental and behavioral disorders; Z63.4 Disappearance and death of family member
CPT/HCPCS: 80053; 80061; 80306; 81003; 82075; 82248; 83036; 84443; 85025; 87635